=== PATIENT | male | born 1970 | race Caucasian/White ===

== ENCOUNTER → 2016-05-25 | Outpatient (CLI) | payer OTHER ==
[~2016-05-25] MED LIST: AZITHROMYCIN 2250 MG PO; BACLOFEN 10MG T10 MG PO; BACLOFEN20 MG PO; CYMBALTA60 MG PO; DULERA 100 MCG/13 GM INH; GRALISE600 MG PO; HYDROCODON-ACE1 EAC5 PO; HYDROCODONE-AP1 EAC6 PO; LYRICA 50 MG50 MG PO; MORPHINE SULFAT30 M2 PO; NABUMETONE 500500 M1 PO; NEURONTIN 300300 M1 PO; NIASPAN 500 MG500 M1 PO; PERCOCET 10-321 EACH PO; RESTORIL30 MG PO; VALIUM5 MG PO
== END ==
LOC: ULTRA 11:10
DX: M79.89 Other specified soft tissue disorders (principal); M79.605 Pain in left leg

== ENCOUNTER → 2017-09-05 | Outpatient (CLI) | payer BC ==
[~2017-09-05] VITALS: Ht 190.5 cm; Wt 137.1 kg
[~2017-09-05] MED LIST changes: +NORCO 5-325 TA1 EACH PO
[2017-09-05 13:41] VITALS: BP 141/90
== END ==
LOC: PAIN 08-09 06:44
DX: Z09 Encounter for follow-up examination after completed treatment for conditions other than malignant neoplasm (principal); M54.2 Cervicalgia; M79.641 Pain in right hand; F17.210 Nicotine dependence, cigarettes, uncomplicated; Z79.891 Long term (current) use of opiate analgesic

== ENCOUNTER → 2017-09-12 | Outpatient (CLI) | payer BC ==
[~2017-09-12] VITALS: Ht 190.5 cm; Wt 135.3 kg
--- NOTE | ~2017-09-12 | HPC ---
[facility] [address] [place] [address] PAIN MANAGEMENT CONSULTATION Name: GIL MANLEY Room #: [facility] [id number] Admission: 09/12/17 Attend Phys: Juanjose Mauro DO Discharge: Date of : 70 Report #: [id number] THIS REPORT FOR: //name// CC: Juanjose Hare MD DATE OF SERVICE: 09/12/2017 REFERRING PHYSICIAN: Lucian Hare M.D. CHIEF COMPLAINT: Neck pain, right upper extremity pain with paresthesias. HISTORY OF PRESENT ILLNESS: As you know, the patient is a 46-year-old male with longstanding history of neck pain and right upper extremity pain with paresthesias. The patient indicates his pain is sharp, numbness, tingling and aching in sensation, places current pain score at 6/10. Pain is exacerbated with rotating his neck looking downward extending his neck or lateral flexion to the right and improves with medications, hot tubs and rest and relaxation. The patient has been referred to our clinic to trial cervical epidural injections under fluoroscopic guidance. We at our last visit reviewed his MRI imaging, which showed significant changes in the cervical region that may ultimately need to be addressed surgically. He has been referred to trial more conservative treatment initially to determine if his symptoms will be improved. He returns today having received precertification to undergo first in the series of epidural injections. ALLERGIES: PENICILLIN. CURRENT MEDICATIONS: Nabumetone, hydrocodone, baclofen and temazepam. SOCIAL HISTORY: The patient denies current tobacco use. He does utilize e-cigarettes. He denies IV or illicit drug use. Denies any chronic alcohol use. He is working, not receiving workmen's compensation, unaccompanied today. IMAGING DATA: No new imaging available. PHYSICAL EXAMINATION: VITAL SIGNS: Blood pressure 146/101, pulse is 65, respiratory rate 16 and unlabored and the patient 99% on room air. Height 6 feet 3 inches tall, weight 298.2 pounds and BMI calculated 37.3. GENERAL: Well-developed, well-nourished, well-hydrated exogenously obese 46-year-old male appearing stated age, placing current pain score at 6/10. HEENT: Normocephalic and atraumatic. Pupils equal, round and reactive to light. Extraocular muscles are intact. EXTREMITIES: Show no clubbing, no cyanosis and no edema. [address] [address] PAIN MANAGEMENT CONSULTATION Name: GIL MANLEY JR [facility] [id number] Admission: 09/12/17 Attend Phys: Juanjose Mauro DO Discharge: Date of : 70 Report #: [id number] MUSCULOSKELETAL: Upper extremity strength appears equal and symmetrical 5/5, muscle bulk and tone equal and symmetrical. He is intact to light touch from C5 to T1 dermatomes. Spurling's test positive. There is well-healed surgical scar of the cervical area. ASSESSMENT: 1. Cervical radiculopathy. 2. Displacement of cervical intervertebral disk with radicular symptoms. 3. Cervical spondylosis with radiculopathy. 4. Chronic intractable pain. PLAN: 1. The patient has returned today in followup visit having prepared to undergo a cervical epidural injection under fluoroscopic guidance. We have received authorization for the patient to undergo the procedure today. The patient returns with pain level of 6/10. States his pain has been fairly consistent over the last week and is looking for today's injection. I advised the patient of the risks and benefits of this procedure. These risks include but are not necessarily limited to bleeding, bruising, infection, worsening pain, no relief of pain, also risk of temporary or permanent muscle weakness, temporary or permanent nerve damage, possible paralysis and . The patient states understood and wished to proceed. 2. No medication changes are made at today's visit. The patient to continue current medical therapy as previously prescribed. 3. The patient to return to our clinic in 31 days for the possible next in the series of cervical epidural injections. PROCEDURE NOTE DESCRIPTION OF PROCEDURE: C7-T1 cervical epidural steroid injection under fluoroscopic guidance. This is the first procedure of the first series that the patient is undergoing. After obtaining written consent, the patient was taken back to the fluoroscopy suite and placed in a prone position with separate pillows under chest and forehead to decrease cervical lordosis. The skin overlying the cervical area was prepped and draped in an aseptic fashion. The C7-T1 vertebral interspace was identified by AP fluoroscopy. The skin and subcutaneous tissue overlying the target site of injection was anesthetized using 3 mL of 1% lidocaine. A 20-gauge 3-1/2 inch Tuohy needle was advanced under fluoroscopic guidance toward the epidural space using a paramedian approach. The epidural space was identified using a loss of resistance to air technique. After negative aspiration for heme or cerebrospinal fluid, a total of 1 mL of Omnipaque was injected. A cervical epidurogram was confirmed using AP and oblique [address] [address] PAIN MANAGEMENT CONSULTATION Name: GIL MANLEY JR Room #: [facility] [id number] Admission: 09/12/17 Attend Phys: Juanjose Mauro DO Discharge: Date of : 70 Report #: [id number] fluoroscopy. After negative aspiration for heme or cerebrospinal fluid, 5 mL of a solution containing 2 mL 40 mg per mL, 80 mg total triamcinolone, 3 mL lidocaine 1% was injected in increments. Contrast spread was noted from posterior epidural space. The needle was then retracted approximately fci and the needle track was flushed with 1 mL of 1% lidocaine. There were no apparent new sensory deficits in the upper extremities present following the procedure. A sterile bandage was placed over the injection site. The heart rate, pulse oximetry and blood pressure were continuously monitored after the procedure. There were no apparent complications. The patient tolerated the procedure well and was carefully escorted in the recovery room in stable condition. After meeting discharge criteria, the patient was discharged home. <ELECTRONICALLY SIGNED> By: Juanjose Mauro DO 09/13/17 [id number] Juanjose Mauro DO /nt
[2017-09-12 07:48] VITALS: BP 146/101
== END | disposition home or self-care (01) ==
LOC: PAIN 07:24
DX: M50.13 Cervical disc disorder with radiculopathy, cervicothoracic region (principal); M47.22 Other spondylosis with radiculopathy, cervical region; G89.29 Other chronic pain; F17.210 Nicotine dependence, cigarettes, uncomplicated; E66.09 Other obesity due to excess calories; Z79.899 Other long term (current) drug therapy; Z68.37 Body mass index [BMI] 37.0-37.9, adult; Z88.0 Allergy status to penicillin

== ENCOUNTER → 2018-11-23 | Outpatient (CLI) | payer BC | LOC: ULTRA 09:28 | DX: M79.605 Pain in left leg (principal); R60.0 Localized edema ==

== ENCOUNTER → 2019-10-17 | Outpatient (CLI) | payer BC | LOC: HYPER 14:13 | PROVIDERS: ATTEND Emergency Medicine Emergency Medical Services | DX: L98.492 Non-pressure chronic ulcer of skin of other sites with fat layer exposed (principal); L84 Corns and callosities; E66.01 Morbid (severe) obesity due to excess calories; Z87.891 Personal history of nicotine dependence; Z68.43 Body mass index [BMI] 50.0-59.9, adult ==

== ENCOUNTER → 2019-11-25 | Outpatient (CLI) | payer BC | LOC: HYPER 11:06 | PROVIDERS: ATTEND Emergency Medicine Emergency Medical Services | DX: S91.101D Unspecified open wound of right great toe without damage to nail, subsequent encounter (principal); L98.492 Non-pressure chronic ulcer of skin of other sites with fat layer exposed; L84 Corns and callosities; E66.01 Morbid (severe) obesity due to excess calories; Z68.41 Body mass index [BMI] 40.0-44.9, adult; Z87.891 Personal history of nicotine dependence; X58.XXXD Exposure to other specified factors, subsequent encounter ==

== ENCOUNTER → 2020-06-12 | Outpatient (CLI) | payer BC | LOC: HYPER 08:17 | PROVIDERS: ATTEND Emergency Medicine Emergency Medical Services | DX: L97.512 Non-pressure chronic ulcer of other part of right foot with fat layer exposed (principal); L98.492 Non-pressure chronic ulcer of skin of other sites with fat layer exposed; S91.101D Unspecified open wound of right great toe without damage to nail, subsequent encounter; L84 Corns and callosities; R60.1 Generalized edema; G62.9 Polyneuropathy, unspecified; M48.03 Spinal stenosis, cervicothoracic region; E66.01 Morbid (severe) obesity due to excess calories; M50.80 Other cervical disc disorders, unspecified cervical region; Z68.41 Body mass index [BMI] 40.0-44.9, adult; Z87.891 Personal history of nicotine dependence; Z86.16 Personal history of COVID-19; Z98.890 Other specified postprocedural states; Z79.899 Other long term (current) drug therapy; X58.XXXD Exposure to other specified factors, subsequent encounter ==

== ENCOUNTER → 2020-06-26 | Outpatient (CLI) | payer BC | LOC: HYPER 06-25 15:35 | PROVIDERS: ATTEND Emergency Medicine Emergency Medical Services | DX: S91.101D Unspecified open wound of right great toe without damage to nail, subsequent encounter (principal); L97.512 Non-pressure chronic ulcer of other part of right foot with fat layer exposed; L98.492 Non-pressure chronic ulcer of skin of other sites with fat layer exposed; S90.921A Unspecified superficial injury of right foot, initial encounter; L84 Corns and callosities; R60.1 Generalized edema; M48.03 Spinal stenosis, cervicothoracic region; G62.9 Polyneuropathy, unspecified; E66.01 Morbid (severe) obesity due to excess calories; Z68.41 Body mass index [BMI] 40.0-44.9, adult; Z86.16 Personal history of COVID-19; Z87.891 Personal history of nicotine dependence; Z79.899 Other long term (current) drug therapy; X58.XXXD Exposure to other specified factors, subsequent encounter; X58.XXXA Exposure to other specified factors, initial encounter; Y93.89 Activity, other specified; Y92.89 Other specified places as the place of occurrence of the external cause; Y99.8 Other external cause status ==

== ENCOUNTER → 2020-09-30 | Outpatient (CLI) | payer BC | LOC: HYPER 09:28 | PROVIDERS: ATTEND Emergency Medicine Emergency Medical Services | DX: S91.101D Unspecified open wound of right great toe without damage to nail, subsequent encounter (principal); L98.492 Non-pressure chronic ulcer of skin of other sites with fat layer exposed; S90.921D Unspecified superficial injury of right foot, subsequent encounter; L84 Corns and callosities; R60.1 Generalized edema; M48.03 Spinal stenosis, cervicothoracic region; G62.9 Polyneuropathy, unspecified; E66.01 Morbid (severe) obesity due to excess calories; Z68.41 Body mass index [BMI] 40.0-44.9, adult; Z86.16 Personal history of COVID-19; Z87.891 Personal history of nicotine dependence; X58.XXXD Exposure to other specified factors, subsequent encounter ==

== ENCOUNTER → 2020-10-08 | Outpatient (CLI) | payer BC | LOC: HYPER 07:33 | PROVIDERS: ATTEND Emergency Medicine | DX: S91.101D Unspecified open wound of right great toe without damage to nail, subsequent encounter (principal); L98.492 Non-pressure chronic ulcer of skin of other sites with fat layer exposed; S90.921D Unspecified superficial injury of right foot, subsequent encounter; L84 Corns and callosities; R60.1 Generalized edema; M48.03 Spinal stenosis, cervicothoracic region; G62.9 Polyneuropathy, unspecified; E66.01 Morbid (severe) obesity due to excess calories; Z68.41 Body mass index [BMI] 40.0-44.9, adult; Z86.16 Personal history of COVID-19; Z87.891 Personal history of nicotine dependence; X58.XXXD Exposure to other specified factors, subsequent encounter ==

== ENCOUNTER → 2020-10-23 | Outpatient (CLI) | payer BC | LOC: HYPER 07:46 | PROVIDERS: ATTEND Emergency Medicine Emergency Medical Services | DX: S91.101D Unspecified open wound of right great toe without damage to nail, subsequent encounter (principal); S90.921D Unspecified superficial injury of right foot, subsequent encounter; L97.512 Non-pressure chronic ulcer of other part of right foot with fat layer exposed; L98.492 Non-pressure chronic ulcer of skin of other sites with fat layer exposed; L84 Corns and callosities; R60.1 Generalized edema; G62.9 Polyneuropathy, unspecified; M48.03 Spinal stenosis, cervicothoracic region; E66.01 Morbid (severe) obesity due to excess calories; Z68.41 Body mass index [BMI] 40.0-44.9, adult; Z86.16 Personal history of COVID-19; Z87.891 Personal history of nicotine dependence; Z79.899 Other long term (current) drug therapy; X58.XXXD Exposure to other specified factors, subsequent encounter ==

== ENCOUNTER → 2020-11-03 | Outpatient (CLI) | payer BC | LOC: ULTRA 10:16 | PROVIDERS: ATTEND Family Medicine | DX: S90.921A Unspecified superficial injury of right foot, initial encounter (principal); M25.461 Effusion, right knee; M25.774 Osteophyte, right foot; M71.21 Synovial cyst of popliteal space [Baker], right knee; M79.89 Other specified soft tissue disorders; L98.492 Non-pressure chronic ulcer of skin of other sites with fat layer exposed; M19.071 Primary osteoarthritis, right ankle and foot; X58.XXXA Exposure to other specified factors, initial encounter; Y93.89 Activity, other specified; Y92.89 Other specified places as the place of occurrence of the external cause; Y99.8 Other external cause status ==

== ENCOUNTER → 2020-11-06 | Outpatient (CLI) | payer BC | LOC: HYPER 07:35 | PROVIDERS: ATTEND Emergency Medicine Emergency Medical Services | DX: S91.101D Unspecified open wound of right great toe without damage to nail, subsequent encounter (principal); S90.921D Unspecified superficial injury of right foot, subsequent encounter; L97.512 Non-pressure chronic ulcer of other part of right foot with fat layer exposed; L98.492 Non-pressure chronic ulcer of skin of other sites with fat layer exposed; L84 Corns and callosities; R60.1 Generalized edema; G62.9 Polyneuropathy, unspecified; M48.03 Spinal stenosis, cervicothoracic region; E66.01 Morbid (severe) obesity due to excess calories; Z68.41 Body mass index [BMI] 40.0-44.9, adult; Z86.16 Personal history of COVID-19; Z87.891 Personal history of nicotine dependence; X58.XXXD Exposure to other specified factors, subsequent encounter ==

== ENCOUNTER → 2020-12-14 | Outpatient (CLI) | payer BC | LOC: HYPER 11-27 15:16 | PROVIDERS: ATTEND Emergency Medicine Emergency Medical Services | DX: S91.101D Unspecified open wound of right great toe without damage to nail, subsequent encounter (principal); L98.492 Non-pressure chronic ulcer of skin of other sites with fat layer exposed; L84 Corns and callosities; R60.1 Generalized edema; M48.03 Spinal stenosis, cervicothoracic region; G62.9 Polyneuropathy, unspecified; E66.01 Morbid (severe) obesity due to excess calories; Z68.41 Body mass index [BMI] 40.0-44.9, adult; Z86.16 Personal history of COVID-19; M50.30 Other cervical disc degeneration, unspecified cervical region; Z87.891 Personal history of nicotine dependence; Z79.899 Other long term (current) drug therapy; X58.XXXD Exposure to other specified factors, subsequent encounter ==